=== PATIENT | female | born 1990 | race Caucasian/White ===

== ENCOUNTER 2016-09-27 11:50 | Emergency (ER) | payer OTHER | END 2016-09-27 16:14 | disposition left against medical advice (07) | LOC: ER 11:50 | DX: Z53.21 Procedure and treatment not carried out due to patient leaving prior to being seen by health care provider (principal) | CPT/HCPCS: 36415; 80053; 81001; 83690; 84703; 85025 ==

== ENCOUNTER 2016-10-25 09:26 | Emergency (ER) | payer OTHER ==
[2016-10-25] MEDS ORDERED: KETOROLAC 60 MG/2 ML VIAL IM ONE (10:18)
[2016-10-25] MEDS ORDERED: DUONEB INH ONE (10:22)
== END 2016-10-25 11:18 | disposition home or self-care (01) ==
LOC: FASTR 09:26
DX: J06.9 Acute upper respiratory infection, unspecified (principal); M94.0 Chondrocostal junction syndrome [Tietze]; R05 Cough; F17.210 Nicotine dependence, cigarettes, uncomplicated
CPT/HCPCS: 71020; 87804; 87880; 94640; 96372